=== PATIENT | male | born 1960 | race Caucasian/White ===

== ENCOUNTER 2022-07-21 18:08 | Emergency (ER) | payer SELFPAY ==
[2022-07-21 18:16] VITALS: BP 117/78
[2022-07-21 18:34] VITALS: BP 112/78
[2022-07-21 18:45] VITALS: BP 106/75
[2022-07-21 18:47] VITALS: BP 106/75
[2022-07-21] MEDS ORDERED: TAMSULOSIN0.4 MG PO (19:18)
== END 2022-07-21 18:47 | disposition left against medical advice (07) | DRG 312 ==
LOC: ED 18:08
DX: R55 Syncope and collapse (principal); K08.89 Other specified disorders of teeth and supporting structures; Z53.29 Procedure and treatment not carried out because of patient's decision for other reasons